=== PATIENT | female | born 2005 ===

== ENCOUNTER 2025-09-17 02:17 | Emergency (ER) | payer SELFPAY ==
[2025-09-17 02:45] LABS: #Basophils Less than 0.03 10x3/uL (0.0-0.2); #Eosinophils Less than 0.03 10x3/uL (0.0-0.7); #Monocytes 0.23 10x3/uL (0.11-0.59); #Neutrophils 3.45 10x3/uL (1.40-6.50); %Basophils 0.2 % (0.0-1.0); %Eosinophils 0.3 % (0.0-10.0); %Lymphocytes 39.0 % (28.0-48.0); %Monocytes 3.8 % (0.0-4.0); %Neutrophils 56.4 % (31.0-61.0); Hematocrit 35.2 % (36.0-47.0); Hemoglobin 11.3 g/dL (12.0-16.0); Mean Corpuscular Hemoglobin 27.7 pg (25.0-35.0); Mean Corpuscular Volume 86.3 fL (78.0-98.0); Platelet Count 193 10x3/uL (130-400); Red Blood Cell (RBC) Count 4.08 mill/uL (4.00-5.20); White Blood Cell (WBC) Count 6.11 10x3/uL (4.8-10.8)
[2025-09-17 02:59] LABS: ALT (SGPT) 13 U/L (Less than 34); AST (SGOT) 35 U/L (11-34); Albumin 4.0 g/dL (3.1-4.5); Alkaline Phosphatase 45 U/L (40-100); Anion Gap 15 mmol/L (10-20); BUN (Urea Nitrogen) 7 mg/dL (7.0-18.7); Bilirubin, Total 0.1 mg/dL (0.3-1.2); Calc. Creatinine Clearance 0 mL/min (70-130); Calcium 8.0 mg/dL (7.8-10.44); Carbon Dioxide 20 mmol/L (22-29); Chloride 108 mmol/L (98-107); Globulin 2.6 g/dL (2.4-3.5); Glucose 147 mg/dL (70-105); Magnesium 1.8 mg/dL (1.7-2.2); Potassium 3.1 mmol/L (3.5-5.1); Sodium 140 mmol/L (136-145)
[2025-09-17 03:00] LABS: BHCG - Serum Negative (NEGATIVE); Pregs Control Background? CLEAR/WHITE (CLR/WHITE); Pregs Control Bar Appear? YES (CONTROL BAR)
[2025-09-17] MEDS ORDERED: Potassium Chloride 20 MEQ (100 mL) BAG ONE (03:14)
== END 2025-09-17 06:30 | disposition home or self-care (01) ==
LOC: ERS 02:17 → EDBD 02:17 → ERS 06:30
DX: F10.129 Alcohol abuse with intoxication, unspecified (principal); Y90.7 Blood alcohol level of 200-239 mg/100 ml
CPT/HCPCS: 80053; 80307; 83735; 84703; 85025; 96365; J3480